=== PATIENT | female | born 1995 | race Hispanic/Latino ===

== ENCOUNTER 2023-02-12 01:46 | Emergency (ER) | payer MEDICAID ==
[~2023-02-12] VITALS: Ht 157.5 cm; Wt 86.2 kg
[~2023-02-12 01:46] MED LIST: BENZ-39 PO; CETI1TAB45 PO; PRED20TA3 PO
[2023-02-12] MEDS ORDERED: IPRATROPIUM/ALBUTEROL SULFATE 3 ML SOLUTION IH ONE ×2 (02:00→04:00)
[2023-02-12] MEDS ORDERED: BUDE180H IH (03:40)
[2023-02-12] MEDS ORDERED: ALBUHFA IH (03:40)
[2023-02-12] MEDS ORDERED: SOLU-MEDROL 125MG VIAL IM ONE (04:00)
[2023-02-12] MEDS ORDERED: MAGNESIUM 2GM PREMIX 50ML 50 ML IV SCH (04:00)
[2023-02-12 05:34] VITALS: BP 112/64
== END 2023-02-12 06:21 | disposition home or self-care (01) ==
LOC: EDH 01:46
DX: J45.901 Unspecified asthma with (acute) exacerbation (principal); Z79.52 Long term (current) use of systemic steroids; Z88.8 Allergy status to other drugs, medicaments and biological substances
CPT/HCPCS: 99284; 96365; 71045; 96366; 96372; 94640 ×2; J3475; J2930

== ENCOUNTER 2023-02-17 19:19 | Observation (INO) | payer MEDICAID ==
[~2023-02-17] VITALS: Ht 160 cm; Wt 86.4 kg
[~2023-02-17 19:19] MED LIST changes: +ALBUHFA IH; +BUDE180H IH
[2023-02-17] MEDS ORDERED: IPRATROPIUM/ALBUTEROL SULFATE 3 ML SOLUTION IH ONE (20:00)
[2023-02-17] MEDS ORDERED: SOLU-MEDROL 125MG VIAL IVP ONE (20:00)
[2023-02-17] MEDS ORDERED: MAGNESIUM 2GM PREMIX 50ML 50 ML IV SCH (21:30)
[2023-02-18] MEDS ORDERED: ZOLPIDEM TARTRATE 5 MG TAB PO PRN (00:30)
[2023-02-18] MEDS ORDERED: ACETAMINOPHEN 325 MG TAB PO PRN ×2 (00:30)
[2023-02-18] MEDS ORDERED: MORPHINE 4 MG SYG IV PRN (00:30)
[2023-02-18] MEDS ORDERED: ONDANSETRON 4MG INJ IV PRN (00:30)
[2023-02-18] MEDS ORDERED: MORPHINE 2 MG SYG IV PRN (00:30)
[2023-02-18] MEDS: SOLU-MEDROL 40MG VIAL IVP SCH ×3 (00:30→18:40)
[2023-02-18] MEDS: LACTATED RINGERS 1000ML 1,000 ML IV SCH ×2 (00:41→18:38)
[2023-02-18 02:05] VITALS: BP 121/74
[2023-02-18] MEDS: ALBUTEROL 0.083% 2.5 MG/3 ML INH IH SCH ×5 (02:32→19:08)
[2023-02-18] MEDS: FAMOTIDINE 20MG TAB PO SCH ×2 (07:47→20:06)
[2023-02-18] MEDS: ENOXAPARIN SODIUM 40 MG/0.4 ML SYRINGE SQ SCH (07:52)
[2023-02-18 08:00] VITALS: BP 113/61
[2023-02-18] MEDS: GUAIFENESIN-DM 200/20 MG 10 ML PO PRN ×2 (11:53→23:36)
[2023-02-18 12:00] VITALS: BP 108/61
[2023-02-18 12:46] LABS: HEMATOCRIT 42.9 % (36-48); MEAN CORPUSCULAR HGB CONC 32.4 g/dL (32.0-36.0); MEAN CORPUSCULAR VOLUME 83.5 fL (79-99); RED BLOOD CELL COUNT(AUTO) 5.14 MIL/uL (4.00-5.50); RED CELL DISTRIBUTION WIDTH 14.5 % (11.0-15.5); WHITE BLOOD COUNT (AUTO) 16.9 K/uL (4.8-10.8)
[2023-02-18 13:00] LABS: CREATININE 0.8 mg/dL (0.5-1.5)
[2023-02-18 13:05] LABS: ALBUMIN 3.5 g/dL (3.5-5.0); TOTAL PROTEIN, SERUM 7.9 g/dL (6.0-8.3)
[2023-02-18 16:00] VITALS: BP 115/71
[2023-02-18] MEDS: BUDESONIDE 0.5 MG/2 ML INH IH SCH (19:07)
[2023-02-18 19:57] VITALS: BP 99/49
[2023-02-18] MEDS ORDERED: MONTELUKAST SODIUM 10 MG TAB PO SCH (21:00)
[2023-02-18 23:24] VITALS: BP 105/48
[2023-02-19] MEDS: SOLU-MEDROL 40MG VIAL IVP SCH ×2 (01:42→09:45)
[2023-02-19] MEDS: ALBUTEROL 0.083% 2.5 MG/3 ML INH IH SCH ×3 (02:46→10:15)
[2023-02-19 03:38] VITALS: BP 120/59
[2023-02-19 06:19] LABS: BASOPHILS % (AUTO) 0.1 % (0.0-5.0); LYMPHOCYTES % (AUTO) 5.8 % (21.0-51.0); MEAN CORPUSCULAR HEMOGLOBIN 27.4 pg (27.0-33.0); MEAN CORPUSCULAR HGB CONC 32.6 g/dL (32.0-36.0); MEAN CORPUSCULAR VOLUME 84.2 fL (79-99); MONOCYTES % (AUTO) 2.3 % (3.0-13.0); PLATELET COUNT (AUTO) 274 K/uL (130-400); RED BLOOD CELL COUNT(AUTO) 4.63 MIL/uL (4.00-5.50); RED CELL DISTRIBUTION WIDTH 14.9 % (11.0-15.5); WHITE BLOOD COUNT (AUTO) 20.2 K/uL (4.8-10.8)
[2023-02-19 06:46] LABS: CREATININE 0.7 mg/dL (0.5-1.5); POTASSIUM 4.2 mmol/L (3.5-5.1); TOTAL PROTEIN, SERUM 6.8 g/dL (6.0-8.3)
[2023-02-19] MEDS: BUDESONIDE 0.5 MG/2 ML INH IH SCH (07:07)
[2023-02-19 07:26] LABS: ERYTHROCYTE SEDIMENTATION RATE 72 MM/HR (0-20)
[2023-02-19] MEDS ORDERED: METH4TAB3 PO (07:42)
[2023-02-19 08:00] VITALS: BP 90/54
[2023-02-19] MEDS ORDERED: CETIRIZINE HCL 5 MG TABLET PO SCH (09:00)
[2023-02-19] MEDS: ENOXAPARIN SODIUM 40 MG/0.4 ML SYRINGE SQ SCH (09:00)
[2023-02-19] MEDS: FAMOTIDINE 20MG TAB PO SCH (09:41)
[2023-02-19 20:20] VITALS: BP 119/61
== END 2023-02-19 11:35 | disposition home or self-care (01) ==
LOC: EDH 19:19 → INTOOBSV 19:20 → EDHIP 19:20 → 3BH 02-18 01:54
PROVIDERS: ADMIT Internal Medicine; ATTEND Internal Medicine
DX: J45.901 Unspecified asthma with (acute) exacerbation (principal); Z20.822 Contact with and (suspected) exposure to COVID-19; J06.9 Acute upper respiratory infection, unspecified; F81.9 Developmental disorder of scholastic skills, unspecified; Z51.5 Encounter for palliative care; Z79.51 Long term (current) use of inhaled steroids; Z79.899 Other long term (current) drug therapy; Z98.890 Other specified postprocedural states
CPT/HCPCS: 96365; 96366; 96375; 99285; 87804 ×2; 87635; 94640 ×11; 96376 ×2; 96361 ×2; 80053 ×2; 85027; 36415 ×2; 71045; 94664; 85025; 85651; 84145; C9803; J3475; J2930; J2920 ×4; G0378 ×2; J1650

== ENCOUNTER 2023-06-22 08:39 | Day surgery (SDC) | payer MEDICAID ==
[2023-06-20 14:30] LABS: BASOPHILS # (AUTO) 0.06 K/uL (0.00-0.20); BASOPHILS % (AUTO) 0.5 % (0.0-5.0); EOSINOPHILS # (AUTO) 1.05 K/uL (0.00-0.70); EOSINOPHILS % (AUTO) 8.9 % (0.0-8.0); HEMATOCRIT 37.1 % (36-48); IMMATURE GRANULOCYTE ABSOLUTE 0.05 K/uL (0-1); LYMPHOCYTES # (AUTO) 2.3 K/uL (1.0-4.8); LYMPHOCYTES % (AUTO) 19.3 % (21.0-51.0); MEAN CORPUSCULAR HEMOGLOBIN 29.1 pg (27.0-33.0); MEAN CORPUSCULAR HGB CONC 33.2 g/dL (32.0-36.0); MEAN CORPUSCULAR VOLUME 87.9 fL (79-99); MONOCYTES # (AUTO) 0.7 K/uL (0.1-1.0); MONOCYTES % (AUTO) 6.2 % (3.0-13.0); NEUTROPHILS # (AUTO) 7.6 K/uL (1.8-7.7); NEUTROPHILS % (AUTO) 64.7 % (40.0-77.0); PLATELET COUNT (AUTO) 250 K/uL (130-400); RED BLOOD CELL COUNT(AUTO) 4.22 MIL/uL (4.00-5.50); RED CELL DISTRIBUTION WIDTH 14.2 % (11.0-15.5); WHITE BLOOD COUNT (AUTO) 11.8 K/uL (4.8-10.8)
[2023-06-20 14:34] VITALS: BP 105/66; PULSE 73; RESP 18
[2023-06-20 14:52] LABS: ALBUMIN 3.1 g/dL (3.5-5.0); BILIRUBIN,TOTAL 0.2 mg/dL (0.2-1.0); CREATININE 0.9 mg/dL (0.5-1.5); POTASSIUM 3.9 mmol/L (3.5-5.1); TOTAL PROTEIN, SERUM 7.1 g/dL (6.0-8.3)
[2023-06-22] VITALS (17 sets, daily range): BP systolic 100–117; BP diastolic 58–99; PULSE 69–102; RESP 12–22
[~2023-06-22] VITALS: Ht 157.5 cm; Wt 88.4 kg
[~2023-06-22 08:39] MED LIST changes: -BENZ-39 PO; -BUDE180H IH; -CETI1TAB45 PO; -PRED20TA3 PO
[2023-06-22] MEDS ORDERED: BUPIVACAINE/PF 0.25% 30ML VIAL IJ ONE (08:45)
[2023-06-22] MEDS ORDERED: LACTATED RINGERS 1000ML 1,000 ML IV ONE (08:48)
[2023-06-22] MEDS ORDERED: CEFAZOLIN SODIUM 2 GM VIAL ONE (08:48)
[2023-06-22] MEDS ORDERED: ROCURONIUM 10MG/1ML SYR 10 MG/ML ML ONE (09:07)
[2023-06-22] MEDS ORDERED: FENTANYL CITRATE PF 50 MCG/1 ML 2ML VIAL ONE (09:07)
[2023-06-22] MEDS ORDERED: MIDAZOLAM HCL 1 MG/ML 2ML VIAL ONE (09:07)
[2023-06-22] MEDS ORDERED: SUCCINYLCHOLINE 200MG/10ML SYR ONE (09:07)
[2023-06-22] MEDS ORDERED: PROPOFOL 10 MG/ML 20ML VIAL IV ONE (09:07)
[2023-06-22] MEDS ORDERED: LIDOCAINE PF 100MG/5ML (2%) SYRINGE 5ML ONE (09:07)
[2023-06-22] MEDS ORDERED: GLYCOPYRROLATE 1 MG/5 ML SYRINGE ONE (10:12)
[2023-06-22] MEDS ORDERED: NEOSTIGMINE 5MG/5ML SYR IV ONE (10:12)
[2023-06-22] MEDS ORDERED: ONDANSETRON 4MG INJ ONE (10:50)
[2023-06-22] MEDS ORDERED: MEPERIDINE-PF 25 MG/ML SYG ONE (10:50)
[2023-06-22] MEDS ORDERED: KETOROLAC 30MG VIAL (30MG/ML) ONE (10:51)
== END 2023-06-22 13:15 | disposition home or self-care (01) ==
LOC: DAH 08:39
PROVIDERS: ATTEND Surgery
DX: K80.10 Calculus of gallbladder with chronic cholecystitis without obstruction (principal); Z20.822 Contact with and (suspected) exposure to COVID-19; K82.8 Other specified diseases of gallbladder; J45.909 Unspecified asthma, uncomplicated; E66.9 Obesity, unspecified; Z98.890 Other specified postprocedural states; Z98.51 Tubal ligation status; Z98.891 History of uterine scar from previous surgery; Z79.899 Other long term (current) drug therapy; Z88.8 Allergy status to other drugs, medicaments and biological substances; Z91.040 Latex allergy status; Z88.3 Allergy status to other anti-infective agents; Z68.32 Body mass index [BMI] 32.0-32.9, adult
CPT/HCPCS: 80053; 84703; 85025; 36415; 47562; 88304; A6260; A4663; J7030; J7120; J3010; J0330; J3490 ×4; J2710; J2250; J2405; J1885; J2175; J0690; C1769 ×3; A4649 ×2; A4930; A4215; A4223; A4222; A4221; A4600; J2001; J2704

== ENCOUNTER 2023-10-18 20:14 | Emergency (ER) | payer MEDICAID ==
[~2023-10-18] VITALS: Ht 157.5 cm; Wt 89.8 kg
[2023-10-18 20:15] VITALS: BP 129/76; O2SAT 97
[2023-10-18] MEDS ORDERED: IPRATROPIUM/ALBUTEROL SULFATE 3 ML SOLUTION IH ONE (20:30)
[2023-10-18] MEDS ORDERED: ALBU90AE2 IH (20:32)
[2023-10-18 21:00] LABS: RAPID GROUP A STREP negative (NEGATIVE)
[2023-10-18 21:02] VITALS: PULSE 83; RESP 18
[2023-10-18 21:08] LABS: SARS-CoV-2, RNA, NAAT NEGATIVE SARS CoV-2 (NEGATIVE)
[2023-10-18 21:10] LABS: INFLUENZA TYPE A Negative For Type A (NEGATIVE); INFLUENZA TYPE B Negative For Type B (NEGATIVE)
== END 2023-10-18 21:39 | disposition home or self-care (01) ==
LOC: EDH 20:14
DX: J45.901 Unspecified asthma with (acute) exacerbation (principal); Z91.041 Radiographic dye allergy status; Z88.8 Allergy status to other drugs, medicaments and biological substances; Z20.822 Contact with and (suspected) exposure to COVID-19
CPT/HCPCS: 99283; 87635; 87880; 87804 ×2; 94640; C9803

== ENCOUNTER 2024-01-15 17:08 | Emergency (ER) | payer MEDICAID ==
[~2024-01-15] VITALS: Ht 160 cm; Wt 86.2 kg
[~2024-01-15 17:08] MED LIST changes: +ALBU90AE2 IH
[2024-01-15 17:22] VITALS: PULSE 119; RESP 26
[2024-01-15 17:26] VITALS: PULSE 118; RESP 26
[2024-01-15] MEDS: IPRATROPIUM/ALBUTEROL SULFATE 3 ML SOLUTION IH ONE ×4 (17:43→20:02)
[2024-01-15 17:56] LABS: BASOPHILS # (AUTO) 0.04 K/uL (0.00-0.20); BASOPHILS % (AUTO) 0.3 % (0.0-5.0); HEMATOCRIT 42.5 % (36-48); IMMATURE GRANULOCYTE ABSOLUTE 0.09 K/uL (0-1); LYMPHOCYTES # (AUTO) 0.9 K/uL (1.0-4.8); LYMPHOCYTES % (AUTO) 6.2 % (21.0-51.0); MEAN CORPUSCULAR HEMOGLOBIN 28.4 pg (27.0-33.0); MEAN CORPUSCULAR HGB CONC 32.7 g/dL (32.0-36.0); MEAN CORPUSCULAR VOLUME 86.7 fL (79-99); MONOCYTES # (AUTO) 0.1 K/uL (0.1-1.0); MONOCYTES % (AUTO) 0.8 % (3.0-13.0); NEUTROPHILS # (AUTO) 13.2 K/uL (1.8-7.7); NEUTROPHILS % (AUTO) 92.1 % (40.0-77.0); PLATELET COUNT (AUTO) 275 K/uL (130-400); RED CELL DISTRIBUTION WIDTH 14.4 % (11.0-15.5); WHITE BLOOD COUNT (AUTO) 14.3 K/uL (4.8-10.8)
[2024-01-15 18:13] LABS: CREATININE 0.9 mg/dL (0.5-1.0); POTASSIUM 4.4 mmol/L (3.5-5.1)
[2024-01-15 18:23] LABS: ALBUMIN 3.5 g/dL (3.5-5.0); BILIRUBIN,TOTAL 0.3 mg/dL (0.2-1.0); TOTAL PROTEIN, SERUM 7.7 g/dL (6.0-8.3)
[2024-01-15] MEDS: SOLU-MEDROL 125MG VIAL IVP ONE (18:34)
[2024-01-15 18:59] LABS: COVID19 (SARS ANTIGEN RAPID) PRESUMPTIVE NEGATIVE (NEGATIVE); INFLUENZA TYPE A Negative For Type A (NEGATIVE); INFLUENZA TYPE B Negative For Type B (NEGATIVE)
[2024-01-15] MEDS: MAGNESIUM 2GM PREMIX 50ML 50 ML IV SCH (19:00)
[2024-01-15 19:14] VITALS: PULSE 99; RESP 20
[2024-01-15 19:56] VITALS: BP 118/73; PULSE 110; RESP 19; O2SAT 98
[2024-01-15] MEDS ORDERED: ALBUHFA IH (20:26)
[2024-01-15] MEDS ORDERED: AUD IH (20:26)
== END 2024-01-15 20:50 | disposition home or self-care (01) ==
LOC: EDH 17:08
DX: J45.901 Unspecified asthma with (acute) exacerbation (principal); Z88.8 Allergy status to other drugs, medicaments and biological substances; Z91.041 Radiographic dye allergy status; Z20.822 Contact with and (suspected) exposure to COVID-19
CPT/HCPCS: 99285; 96365; 71045; 96375; 87426; 84484; 80053; 85025; 87804 ×2; 36415; 93005; 94640 ×3; J3475; J2930

== ENCOUNTER → 2024-02-26 | Outpatient (CLI) | payer MEDICAID ==
[~2024-02-26] MED LIST changes: -ALBU90AE2 IH; +AMOX-426 PO; +AUD IH; +BUDE10.26 IH; +Ergocalciferol (Vitamin D2) PO; +MONT-46 PO; +PRED10TA3 PO; +PRED20TA3 PO
[2024-02-26 15:15] LABS: BASOPHILS # (AUTO) 0.04 K/uL (0.00-0.20); BASOPHILS % (AUTO) 0.3 % (0.0-5.0); EOSINOPHILS # (AUTO) 0.51 K/uL (0.00-0.70); EOSINOPHILS % (AUTO) 3.8 % (0.0-8.0); HEMATOCRIT 36.7 % (36-48); IMMATURE GRANULOCYTE ABSOLUTE 0.07 K/uL (0-1); LYMPHOCYTES # (AUTO) 2.5 K/uL (1.0-4.8); LYMPHOCYTES % (AUTO) 18.9 % (21.0-51.0); MEAN CORPUSCULAR HEMOGLOBIN 29.2 pg (27.0-33.0); MEAN CORPUSCULAR HGB CONC 33.2 g/dL (32.0-36.0); MEAN CORPUSCULAR VOLUME 87.8 fL (79-99); MONOCYTES % (AUTO) 7.2 % (3.0-13.0); NEUTROPHILS # (AUTO) 9.2 K/uL (1.8-7.7); NEUTROPHILS % (AUTO) 69.3 % (40.0-77.0); PLATELET COUNT (AUTO) 208 K/uL (130-400); RED BLOOD CELL COUNT(AUTO) 4.18 MIL/uL (4.00-5.50); RED CELL DISTRIBUTION WIDTH 14.7 % (11.0-15.5); WHITE BLOOD COUNT (AUTO) 13.3 K/uL (4.8-10.8)
[2024-02-26 15:31] LABS: HCG,QUALITATIVE URINE NEGATIVE (NEGATIVE)
[2024-02-26 15:38] LABS: AMPHET/METH SCREEN,URINE NEGATIVE (NEGATIVE); BARBITURATE SCREEN, URINE NEGATIVE (NEGATIVE); BENZODIAZEPINES SCREEN,URINE NEGATIVE (NEGATIVE); CANNABINOID SCREEN,URINE POSITIVE (NEGATIVE); COCAINE SCREEN,URINE NEGATIVE (NEGATIVE); OPIATE SCREEN,URINE NEGATIVE (NEGATIVE); PHENCYCLIDINE SCREEN,URINE NEGATIVE (NEGATIVE)
[2024-02-26 15:53] LABS: ALBUMIN 3.1 g/dL (3.5-5.0); BILIRUBIN,TOTAL 0.2 mg/dL (0.2-1.0); CREATININE 0.8 mg/dL (0.5-1.0); POTASSIUM 3.7 mmol/L (3.5-5.1); THYROID STIMULATING HORMONE 0.38 uIU/mL (0.36-3.74); TOTAL PROTEIN, SERUM 6.7 g/dL (6.0-8.3)
== END | disposition home or self-care (01) ==
LOC: LAB 14:17
PROVIDERS: ATTEND Psychiatry & Neurology Psychiatry
DX: Z79.899 Other long term (current) drug therapy (principal)
CPT/HCPCS: 36415; 80053; 80061; 80305; 81025; 82306; 82607; 82746; 84443; 85025; 93005

== ENCOUNTER 2025-07-22 17:12 | Emergency (ER) | payer MEDICAID ==
[~2025-07-22] VITALS: Ht 157.5 cm; Wt 90.7 kg
--- NOTE | 2025-07-22 17:28 | ERN ---
ED Note History of Present Illness Stated Complaint: ALLERGIC REACTION Chief Complaint: Allergic Reaction Time Seen by MD: 17:13 Time Seen by Midlevel: 17:13 Dictation: The patient is a 30-year-old female with a history of asthma who presents to the emergency department with complaints of generalized rash onset this afternoon. Patient reports itchiness. Reports some shortness of breath. Denies any fevers or recent illness. EMS gave an albuterol treatment prior to arrival. Allergies: Coded Allergies: iodine (Unverified Allergy, Intermediate, 01/19/23) latex (Unverified Allergy, Intermediate, 01/19/23) Home Meds Active Scripts [Ergocalciferol (Vitamin D2)] 86450 UNIT CAPSULE No Conflict Check, 39199 UNIT PO QWEEK, #30 CAP 1 Refill Prov:COMPA DUKES 02/14/24 Prednisone (Prednisone) 10 Mg Tablet, 10 MG PO DAILY for 5 Days, #5 TAB Prov:MICHELE WATSON NP 02/14/24 Amoxicillin/Potassium Clav (Augmentin 500-125 Tablet) 500 Mg-125 Mg Tablet, 1 EACH PO BID for 7 Days, #14 TAB Prov:MICHELE WATSON NP 02/14/24 Prednisone (Prednisone) 20 Mg Tablet, 20 MG PO DAILY for 5 Days, #5 TAB Prov:MICHELE WATSON NP 02/12/24 Montelukast Sodium (Singulair 10Mg) 10 Mg Tab, 10 MG PO HS for 30 Days, #30 TAB Prov:MICHELE WATSON NP 02/12/24 Budesonide/Formoterol Fumarate (Budesonide-Formoterol 160-4.5) 160 Mcg-4.5 Mcg/Actuation Hfa.aer.ad, 20.4 GM IH 2 puffs for 30 Days, #1 INHALER Prov:MICHELE WATSON NP 02/12/24 Albuterol Sulfate (Albuterol Sulfate) 2.5 Mg/0.5 Ml Vial.neb, 2.5 MG IH Q6H for wheezing/sob, #40 INH 2 Refills Prov:SHANNON CARVALHO Sr., MD 01/15/24 Albuterol Sulfate (Ventolin Hfa/Proventil Hfa/Proair Hfa) 90 Mcg/Puff Puff, 90 MCG IH TID, #2 INHALER 2 Refills Prov:FAREEDLACHO Mcdowell MD 02/12/23 Past Medical History Past Medical History: Abscess, Asthma Surgical History: Other Surgical History Other: LEFT KNEE Family History: Negative Social History: Negative, Lives with family LMP: Jul 11, 2025 RN Note Reviewed/Agreed w/PFSH: Yes Review of System Dictation Constitutional: Negative for fever,chills, and weight loss Eyes: Negative for injury, pain,redness, and discharge ENT: Negative for injury,pain or swelling Cardiovascular: Negative for chest pain, palpitations, and edema Respiratory: Negative for cough, and wheezing, positive for shortness of breath Abdomen/GI: Negative for abdominal pain, nausea, vomiting, diarrhea, and constipation Back: Negative for injury and pain : Negative for injury, bleeding and discharge MS/Extremity: Negative for injury and deformity Skin: Negative for discoloration positive for rash, itchiness Neuro: Negative for headache, weakness, numbness, tingling, and seizure Psych: Negative for suicide ideation, homicidal ideation, and hallucinations Initial Vital Sign VS Vital Signs Date Time Temp Pulse Resp B/P (MAP) Pulse Ox O2 Delivery O2 Flow Rate FiO2 07/22/25 17:13 97.9 92 20 129/77 98 Room Air 0 07/22/25 18:27 21 Physical Exam Dictation Vital Signs reviewed General Appearance: Alert, oriented x 3, no acute distress, well developed, nourished. Head and Face: non-traumatic. Eyes: PERRL, pink conjunctivas, eyelid no trauma, anterior chamber with arcus senilis. Ears: Pinnas intact and no signs of trauma or erythema ear canals clear and no discharge TM no erythema Nose: No discharge, no bleeding. Oropharynx: Mouth normal, tongue pink. pharynx clear,no erythema, tonsils no exudates, no abscesses noted, mucous membrane moist Neck: Supple, non-tender, no thyromegaly, no masses, no JVD, no bruits Breast:Deferred Chest:No tenderness, no crepitus, no paradoxical movement, no retractions Lungs:Clear, well-ventilated, symmetric, no rales, no wheezing, no rhonchi, no stridor, good breath sounds bilaterally Heart: Regular rate, regular rhythm, no murmur, no gallops Vascular: no peripheral edema, Abdomen: Soft, positive bowel sounds, nondistended, no guarding, nontender, no rebound, no masses no hepatomegaly, no splenomegaly, no Sorensen's sign, no hernias. Rectal: Deferred Genital: Deferred Neurological: Normal speech, motor function intact, sensory function intact Musculoskeletal: Neck nontender, full range of motion, back nontender, full range of motion, Extremities: nontender, full range of motion Skin: Color pink, dry, no turgor, no lacerations, no abrasions, no contusions. Generalized hives to back, abdomen, face, excessive dryness noted Lymphatic: Deferred Results (Laboratory/Radiology) Labs Reviewed?: Yes ED Course ED Course Orders Procedure Category Date Status Time Methylprednisolone PHA 07/22/25 Complete Succ 125mg (Solu-Medr 17:30 Diphenhydramine Hcl PHA 07/22/25 Complete (Benadryl Inj) 17:30 Famotidine 20mg Vial PHA 07/22/25 Complete (Pepcid 20mg Vial) 17:30 0.9%Nacl 1000ml (Ns PHA 07/22/25 Complete 1000ml) 17:30 Testing, LAB 07/22/25 Logged Serum Hcg 17:25 Current Medications Medications (Trade) Dose Ordered Sig/Ady Route PRN Reason Start Time Stop Time Status Last Admin Dose Admin Diphenhydramine HCl (BENAdryl INJ) 25 mg ONCE ONCE IV 07/22/25 17:30 07/22/25 17:31 DC 07/22/25 18:16 Famotidine (Pepcid 20mg Vial) 20 mg ONCE ONCE IV 07/22/25 17:30 07/22/25 17:31 DC 07/22/25 18:16 Methylprednisolone Sodium Succinate (Solu-medROL 125MG) 125 mg ONCE ONCE IVP 07/22/25 17:30 07/22/25 17:31 DC 07/22/25 18:16 Sodium Chloride 1,000 ml @ 0 mls/hr ONCE ONCE IV 07/22/25 17:30 07/22/25 17:31 DC 07/22/25 18:16 Vital Signs Date Time Temp Pulse Resp B/P (MAP) Pulse Ox O2 Delivery O2 Flow Rate FiO2 07/22/25 18:27 98.1 90 16 120/75 98 Room Air* 0 21 07/22/25 17:13 97.9 92 20 129/77 98 Room Air 0 Medical Decision Making MDM The patient is a 30-year-old female with a history of asthma who presents to the emergency department with complaints of generalized rash onset this afternoon. Patient reports itchiness. Reports some shortness of breath. Denies any fevers or recent illness. EMS gave an albuterol treatment prior to arrival. With a generalized rash. Reports of itchiness. On physical exam patient is in no acute distress, nontoxic appearing, clear lung sounds, no swelling to face or tongue. No signs of anaphylaxis. Stable vital signs. Patient instructed to follow up with PCP. Differential diagnosis: Allergic reaction acute urticaria, scabies Need for hospitalization: Patient does not meet criteria for hospitalization. There are no social concerns with this patient. DX & DISP Disposition: Discharge Departure Impression: Primary Impression: Acute urticaria Additional Impression: Rash Condition: Stable Scripts Famotidine (Pepcid) 20 Mg Tablet 1 TAB PO DAILY for 7 Days, #7 TAB 0 Refills Prov: HEATH HOUSER 07/22/25 Diphenhydramine HCl (Benadryl) 50 Mg Cap 50 MG PO TID PRN for ALLERGIC REACTION for 10 Days, #30 CAP 0 Refills Prov: HEATH HOUSER 07/22/25 Additional Instructions: Please follow up with the your primary doctor in 1-2 days. If anything worsens please return to ER. FOLLOW-UP WITH PRIMARY CARE PROVIDER IN 1 TO 2 DAYS. TAKE MEDICATIONS DIRECTED HERE IN THE EMERGENCY ROOM. OKAY TO CONTINUE HOME MEDICATIONS UNLESS OTHERWISE DISCUSSED DURING YOUR VISIT IN THE EMERGENCY ROOM TODAY. RETURN TO YOUR NEAREST EMERGENCY ROOM IF SYMPTOMS WORSEN OR IF THERE IS NO IMPROVEMENT. CALL 911 IF YOU NEED IMMEDIATE ASSISTANCE. TAKE TYLENOL [id number] NEEDED AND IF NO CONTRAINDICATIONS ARE PRESENT. INCREASE ORAL HYDRATION. A WOUND CULTURE OR URINE CULTURE WAS ORDERED HERE IN THE EMERGENCY ROOM DEPARTMENT PLEASE FOLLOW-UP WITH PRIMARY CARE PROVIDER AND ADVISE THEM TO GET REPEAT PORTS FROM OUR FACILITY. IF YOU HAD ANY ANGELLA WRAP/SPLINTS THAT WERE APPLIED HERE, PLEASE DO NOT REMOVE THEM UNTIL YOU SEE YOUR PRIMARY CARE OR SPECIALTY. Referrals: BENJI CRUZ (PCP) Time of Disposition: 19:12 I have reviewed the case, and I agree with, Diagnosis and Plan HEATH HOUSER Jul 22, 2025 17:28
[2025-07-22] MEDS: FAMOTIDINE 20MG VIAL IV ONE (18:16)
[2025-07-22] MEDS: 0.9%NACL 1000ML 1,000 ML IV ONE (18:16)
[2025-07-22 18:27] VITALS: BP 120/75; PULSE 90; RESP 16; TEMP 98.1; O2SAT 98
[2025-07-22] MEDS ORDERED: FAMO-136 PO (19:13)
[2025-07-22] MEDS ORDERED: DIPH50CA38 PO (19:13)
[2025-07-23] MEDS ORDERED: ALBUHFA IH (20:54)
[2025-07-23] MEDS ORDERED: AZIT250T9 PO (20:54)
== END 2025-07-22 19:23 | disposition home or self-care (01) ==
LOC: EDH 17:12
DX: L50.9 Urticaria, unspecified (principal); R21 Rash and other nonspecific skin eruption; J45.909 Unspecified asthma, uncomplicated; Z79.52 Long term (current) use of systemic steroids; Z88.8 Allergy status to other drugs, medicaments and biological substances; Z91.040 Latex allergy status
CPT/HCPCS: 99284; 96374; 96375; J2919; J1200; J1308; J7030

== ENCOUNTER 2025-07-23 18:26 | Emergency (ER) | payer MEDICAID ==
[~2025-07-23] VITALS: Ht 157.5 cm; Wt 89.8 kg
[~2025-07-23 18:26] MED LIST changes: +DIPH50CA38 PO; +FAMO-136 PO
--- NOTE | 2025-07-23 18:37 | ERN ---
ED Note History of Present Illness Stated Complaint: ASTHMA Chief Complaint: Adult-Asthma Time Seen by MD: 18:28 Dictation: IS A 30-YEAR-OLD FEMALE COMING IN VIA EMS WITH COMPLAINTS OF AN ASTHMA FLARE EARLIER THIS AFTERNOON. SHE STATES SHE HAS A HISTORY OF ASTHMA AND IT IS RAN OUT OF HER INHALER. SHE HAS HAD NO FEVER NO CHILLS SHE HAS HAD A DRY COUGH FOR THIS AFTERNOON. NO LOSS OF TASTE OR SMELL NO NAUSEA VOMITING NO DIARRHEA. HER [facility] CARE DOCTOR [facility] AND SHE STATES SHE HAS A AN APPOINTMENT IN TWO DAYS. RECEIVED ALBUTEROL IN ROUTE TO THE EMERGENCY ROOM. NO WHEEZING ON THE STRETCHER AT THIS TIME. Allergies: Coded Allergies: iodine (Unverified Allergy, Intermediate, 01/19/23) latex (Unverified Allergy, Intermediate, 01/19/23) Home Meds Active Scripts Famotidine (Pepcid) 20 Mg Tablet, 1 TAB PO DAILY for 7 Days, #7 TAB 0 Refills Prov:HEATH HOUSER ICE GUARD INSPECTOR 07/22/25 Diphenhydramine HCl (Benadryl) 50 Mg Cap, 50 MG PO TID PRN for ALLERGIC REACTION for 10 Days, #30 CAP 0 Refills Prov:HEATH HOUSER ICE GUARD INSPECTOR 07/22/25 [Ergocalciferol (Vitamin D2)] 66565 UNIT CAPSULE No Conflict Check, 97411 UNIT PO QWEEK, #30 CAP 1 Refill Prov:COMPA DUKES PA 02/14/24 Prednisone (Prednisone) 10 Mg Tablet, 10 MG PO DAILY for 5 Days, #5 TAB Prov:MICHELE WATSON NP 02/14/24 Amoxicillin/Potassium Clav (Augmentin 500-125 Tablet) 500 Mg-125 Mg Tablet, 1 EACH PO BID for 7 Days, #14 TAB Prov:MICHELE WATSON NP 02/14/24 Prednisone (Prednisone) 20 Mg Tablet, 20 MG PO DAILY for 5 Days, #5 TAB Prov:MICHELE WATSON SURGICAL INSTRUMENT TECHNICIAN 02/12/24 Montelukast Sodium (Singulair 10Mg) 10 Mg Tab, 10 MG PO HS for 30 Days, #30 TAB Prov:MICHELE WATSON SURGICAL INSTRUMENT TECHNICIAN 02/12/24 Budesonide/Formoterol Fumarate (Budesonide-Formoterol 160-4.5) 160 Mcg-4.5 Mcg/Actuation Hfa.aer.ad, 20.4 GM IH 2 puffs for 30 Days, #1 INHALER Prov:MICHELE WATSON NP 02/12/24 Albuterol Sulfate (Albuterol Sulfate) 2.5 Mg/0.5 Ml Vial.neb, 2.5 MG IH Q6H for wheezing/sob, #40 INH 2 Refills Prov:SHANNON CARVALHO Sr., MD 01/15/24 Albuterol Sulfate (Ventolin Hfa/Proventil Hfa/Proair Hfa) 90 Mcg/Puff Puff, 90 MCG IH TID, #2 INHALER 2 Refills Prov:LACHO GUERRIER MD 02/12/23 Past Medical History Past Medical History: Asthma Surgical History: Other, None Surgical History Other: LEFT KNEE Family History: Negative Social History: Negative, Lives with family History: Not Applicable RN Note Reviewed/Agreed w/PFSH: Yes Review of System Dictation CONSTITUTIONAL: NEGATIVE EXCEPT FOR HPI HEAD/FACE: NEGATIVE EXCEPT FOR HPI EENT: NEGATIVE EXCEPT FOR HPI RESPIRATORY: NEGATIVE EXCEPT FOR HPI SOB/WHEEZING GASTROINTESTINAL/ABDOMINAL: NEGATIVE EXCEPT FOR HPI GENITOURINARY: NEGATIVE EXCEPT FOR HPI MUSCULOSKELETAL: NEGATIVE EXCEPT FOR HPI INTEGUMENTARY: NEGATIVE EXCEPT FOR HPI NEUROLOGICAL/PSYCH: NEGATIVE EXCEPT FOR HPI HEMATOLOGIC/LYMPHATIC: NEGATIVE EXCEPT FOR HPI ALL SYSTEMS NEGATIVE, EXCEPT NOTED ABOVE. 13 POINT REVIEW OF SYSTEMS ASSESSED AND ALL NEGATIVE EXCEPT FOR ABOVE. Initial Vital Sign VS Vital Signs Date Time Temp Pulse Resp B/P (MAP) Pulse Ox O2 Delivery O2 Flow Rate FiO2 07/23/25 18:28 98.4 107 20 125/70 98 Nasal Cannula 4.0 07/23/25 20:12 21 Physical Exam Dictation VITAL SIGNS REVIEWED GENERAL APPEARANCE: ALERT, ORIENTED X 3, NO ACUTE DISTRESS, WELL DEVELOPED, NOURISHED. OBESE HEAD AND FACE: NON-TRAUMATIC. EYES: PERRL, PINK CONJUNCTIVAS, EYELID NO TRAUMA, ANTERIOR CHAMBER WITH ARCUS SENILIS. EARS: PINNAS INTACT AND NO SIGNS OF TRAUMA OR ERYTHEMA EAR CANALS CLEAR AND NO DISCHARGE TM NO ERYTHEMA NOSE: NO DISCHARGE, NO BLEEDING. OROPHARYNX: MOUTH NORMAL, TONGUE PINK, PHARYNX CLEAR,NO ERYTHEMA, TONSILS NO EXUDATES, NO ABSCESSES NOTED, MUCOUS MEMBRANE MOIST NECK: SUPPLE, NON-TENDER, NO THYROMEGALY, NO MASSES, NO JVD, NO BRUITS BREAST:DEFERRED CHEST:NO TENDERNESS, NO CREPITUS, NO PARADOXICAL MOVEMENT, NO RETRACTIONS LUNGS:CLEAR, WELL-VENTILATED, SYMMETRIC, NO RALES, NO WHEEZING, NO RHONCHI, NO STRIDOR, GOOD BREATH SOUNDS BILATERALLY HEART: REGULAR RATE, REGULAR RHYTHM, NO MURMUR, NO GALLOPS VASCULAR: NO PERIPHERAL EDEMA, ABDOMEN: SOFT, POSITIVE BOWEL SOUNDS, NONDISTENDED, NO GUARDING, NONTENDER, NO REBOUND, NO MASSES NO HEPATOMEGALY, NO SPLENOMEGALY, NO HOANG'S SIGN, NO HERNIAS. RECTAL: DEFERRED GENITAL: DEFERRED NEUROLOGICAL: NORMAL SPEECH, MOTOR FUNCTION INTACT, SENSORY FUNCTION INTACT MUSCULOSKELETAL: NECK NONTENDER, FULL RANGE OF MOTION, BACK NONTENDER, FULL RANGE OF MOTION, EXTREMITIES: NONTENDER, FULL RANGE OF MOTION SKIN: COLOR PINK, DRY, NO TURGOR, NO RASH, NO LACERATIONS, NO ABRASIONS, NO CONTUSIONS. LYMPHATIC: DEFERRED Results (Laboratory/Radiology) Laboratory/Radiology Laboratory Tests Test 07/23/25 18:57 White Blood Count 17.8 K/uL (4.8-10.8) H Red Blood Count 4.71 MIL/uL (4.00-5.50) Hemoglobin 13.7 g/dL (12.0-16.0) Hematocrit 42.2 % (36-48) Mean Corpuscular Volume 89.6 fL (79-99) Mean Corpuscular Hemoglobin 29.1 pg (27.0-33.0) Mean Corpuscular Hemoglobin Concent 32.5 g/dL (32.0-36.0) Red Cell Distribution Width 13.8 % (11.0-15.5) Platelet Count 264 K/uL (130-400) Mean Platelet Volume 10.0 fL (7.5-10.5) Immature Granulocyte % (Auto) 0.8 % (0-1) Neutrophils (%) (Auto) 92.1 % (40.0-77.0) H Lymphocytes (%) (Auto) 5.3 % (21.0-51.0) L Monocytes (%) (Auto) 1.7 % (3.0-13.0) L Eosinophils (%) (Auto) 0.0 % (0.0-8.0) Basophils (%) (Auto) 0.1 % (0.0-5.0) Neutrophils # (Auto) 16.3 K/uL (1.8-7.7) H Lymphocytes # (Auto) 1.0 K/uL (1.0-4.8) Monocytes # (Auto) 0.3 K/uL (0.1-1.0) Eosinophils # (Auto) 0.00 K/uL (0.00-0.70) Basophils # (Auto) 0.02 K/uL (0.00-0.20) Absolute Immature Granulocyte (auto 0.15 K/uL (0-1) Nucleated Red Blood Cells 0.0 % (0.0-0.19) White Cell Morphology Comment See comments Sodium Level 140 mmol/L (136-145) Potassium Level 3.8 mmol/L (3.5-5.1) Chloride Level 106 mmol/L (101-111) Carbon Dioxide Level 22 mmol/L (21-32) Blood Urea Nitrogen 11 mg/dL (7-18) Creatinine 0.8 mg/dL (0.5-1.0) Glomerular Filtration Rate Calc 103 mL/min (>90) Random Glucose 172 mg/dL (70-105) H Total Calcium 9.0 mg/dL (8.5-10.1) Labs Reviewed?: Yes ED Course ED Course Orders Procedure Category Date Status Time Covid19 (Sars Antigen LAB 07/23/25 In Process Rapid) 18:30 Cbc With Differential LAB 07/23/25 Complete 18:30 Basic Metabolic Panel LAB 07/23/25 Complete 18:30 Budesonide 0.5 Mg/2 PHA 07/23/25 In Process Ml Inh (Pulmicort 0. 18:30 Methylprednisolone PHA 07/23/25 In Process Succ 125mg (Solu-Medr 18:30 Current Medications Medications (Trade) Dose Ordered Sig/Ady Route PRN Reason Start Time Stop Time Status Last Admin Dose Admin Budesonide (Pulmicort 0.5 Mg/2ml) 1 mg ONCE IH 07/23/25 18:30 07/23/25 22:30 07/23/25 20:09 Methylprednisolone Sodium Succinate (Solu-medROL 125MG) 125 mg ONCE IVP 07/23/25 18:30 07/23/25 22:30 07/23/25 18:56 Vital Signs Date Time Temp Pulse Resp B/P (MAP) Pulse Ox O2 Delivery O2 Flow Rate FiO2 07/23/25 20:12 98.6 96 18 112/68 96 Room Air* 0 21 07/23/25 20:09 91 18 07/23/25 18:28 98.4 107 20 125/70 98 Nasal Cannula 4.0 2049/PATIENT IS SATURATING 98 99% ON ROOM AIR. BILATERAL BREATH SOUNDS ARE CLEAR TO AUSCULTATION PATIENT STATES SHE FEELS MARKEDLY IM[place]OV[place]. [place] [address] WBCS HOWEVER SHE HAS BEEN ON STEROIDS FOR SEVERAL DAYS PUBLIC ADDRESS ANNOUNCER TO AN ALLERGIC REACTION. STRONGLY SUSPECT THIS IS REACTIVE RATHER THAN INFECTIVE Medical Decision Making MDM MEDICAL DECISION-MAKING BASED ON BASIC LABS [id number] IV PUSH AND BUDESONIDE FOR ACUTE [place]HMA [place] [address] WBCS HOWEVER STRONGLY SUSPECT THIS IS REACTIVE AND DUE TO THE STEROIDS RATHER THAT INFECTION BILATERAL BREATH SOUNDS ARE CLEAR SATURATING 98 99% ON ROOM AIR. WE WILL SEND PATIENT HOME WITH ALBUTEROL AND A Z-DESI HAVE HER SEE YOUR PRIMARY CARE DOCTOR AT THE [facility] TOMORROW DX & DISP Disposition: Discharge Departure Impression: Primary Impression: Acute asthma exacerbation Additional Impression: Leukocytosis Condition: Stable Scripts Albuterol Sulfate (Ventolin Hfa/Proventil Hfa/Proair Hfa) 90 Mcg Puff 2 PUFF IH Q4H for WHEEZING, #1 INHALER 0 Refills Prov: THOMAS YOUNGER NP 07/23/25 Azithromycin (Azithromycin) 250 Mg Tablet 1 TAB PO AD for 5 Days, #6 TAB 0 Refills 2 the first day followed by 1 for days 2-5 Prov: THOMAS YOUNGER NP 07/23/25 Additional Instructions: FOLLOW-UP WITH PRIMARY CARE PROVIDER IN 1 TO 2 DAYS. TAKE MEDICATIONS DIRECTED HERE IN THE EMERGENCY ROOM. OKAY TO CONTINUE HOME MEDICATIONS UNLESS OTHERWISE DISCUSSED DURING YOUR VISIT IN THE EMERGENCY ROOM TODAY. RETURN TO Y OUR NEAREST EMERGENCY ROOM IF SYMPTOMS WORSEN OR IF THERE IS NO IMPROVEMENT. CALL 911 IF YOU NEED IMMEDIATE ASSISTANCE. TAKE TYLENOL OR MOTRIN [id number] NEEDED AND IF NO CONTRAINDICATIONS ARE PRESENT. INCREASE ORAL HYDRATION. A WOUND CULTURE OR URINE CULTURE WAS ORDERED HERE IN THE EMERGENCY ROOM DEPARTMENT PLEASE FOLLOW-UP WITH PRIMARY CARE PROVIDER AND ADVISE THEM TO GET REPEAT PORTS FROM OUR FACILITY. IF YOU HAD ANY ANGELLA WRAP/SPLINTS THAT WERE APPLIED HERE, PLEASE DO NOT REMOVE THEM UNTIL YOU SEE YOUR PRIMARY CARE OR SPECIALTY. USE THE ALBUTEROL INHALER EVERY4 HOURS WHILE AWAKE FOR THE NEXT TWO DAYS. TAKE AZITHROMYCIN DIRECTED UNTIL GONE. FOLLOW UP WITH YOUR PRIMARY CARE DOCTOR AT THE [facility] IN THE NEXT 1-2 DAYS MANAGEMENT OF YOUR ASTHMA Referrals: BENJI CRUZ (PCP) Time of Disposition: 20:53 I have reviewed the case, and I agree with, Diagnosis and Plan THOMAS YOUNGER NP Jul 23, 2025 18:37
[2025-07-23 19:15] LABS: IMMATURE GRANULOCYTE ABSOLUTE 0.15 K/uL (0-1); NUCLEATED RED BLOOD CELLS 0.0 % (0.0-0.19); PLATELET COUNT (AUTO) 264 K/uL (130-400); RED BLOOD CELL COUNT(AUTO) 4.71 MIL/uL (4.00-5.50); RED CELL DISTRIBUTION WIDTH 13.8 % (11.0-15.5); WHITE BLOOD COUNT (AUTO) 17.8 K/uL (4.8-10.8)
[2025-07-23 19:25] LABS: CREATININE 0.8 mg/dL (0.5-1.0); GLOMERULAR FILTR. RATE CALC 103.0 mL/min (>90); GLUCOSE,RANDOM 172.0 mg/dL (70-105); SODIUM SERUM 140.0 mmol/L (136-145); UREA NITROGEN, BLOOD 11.0 mg/dL (7-18)
[2025-07-23 20:09] VITALS: PULSE 91; RESP 18
[2025-07-23] MEDS: BUDESONIDE 0.5 MG/2 ML INH IH SCH (20:09)
[2025-07-23] MEDS ORDERED: ALBUHFA IH (20:54)
[2025-07-23] MEDS ORDERED: AZIT250T9 PO (20:54)
[2025-07-23 21:00] VITALS: BP 111/55; PULSE 85; RESP 18; TEMP 98.5; O2SAT 97
== END 2025-07-23 21:04 | disposition home or self-care (01) ==
LOC: EDH 18:26
DX: J45.901 Unspecified asthma with (acute) exacerbation (principal); D72.829 Elevated white blood cell count, unspecified; Z79.51 Long term (current) use of inhaled steroids; Z79.52 Long term (current) use of systemic steroids; Z88.8 Allergy status to other drugs, medicaments and biological substances; Z91.040 Latex allergy status; Z20.822 Contact with and (suspected) exposure to COVID-19
CPT/HCPCS: 99283; 96374; 87426; 80048; 85025; 36415; 94640; J2919

== ENCOUNTER 2025-07-29 09:01 | Emergency (ER) | payer MEDICAID ==
[~2025-07-29] VITALS: Ht 157.5 cm; Wt 99.3 kg
[~2025-07-29 09:01] MED LIST changes: +AZIT250T9 PO
--- NOTE | 2025-07-29 09:24 | ERN ---
General Chief Complaint: Abscess Stated Complaint: ABSCESS Time Seen by MD: 09:11 History of Present Illness Initial Comments Patient is a 30 year old female who came in complaining of redness, pain and swelling on her left lateral leg. Per the patient the pain started on Sunday morning and she does not know what caused it. The redness and pain started increasing and the reason why she came to the ER today. She rated the pain a 10/10 and the site was tender to touch. There was also associated symptom of itchiness. On physical exam it looked like a insect bite which got infected. Timing/Duration: constant Severity: moderate Associated Symptoms: denies symptoms Allergies: Coded Allergies: iodine (Unverified Allergy, Intermediate, 01/19/23) latex (Unverified Allergy, Intermediate, 01/19/23) Home Meds Active Scripts Sulfamethoxazole/Trimethoprim (Bactrim Ds Tablet) 800 Mg-160 Mg Tablet, 1 TAB PO BID for 7 Days, #14 TAB 0 Refills Prov:JAYLEN STANFORD MD 07/29/25 Albuterol Sulfate (Ventolin Hfa/Proventil Hfa/Proair Hfa) 90 Mcg Puff, 2 PUFF IH Q4H for WHEEZING, #1 INHALER 0 Refills Prov:THOMAS YOUNGER SLED MAKER 07/23/25 Azithromycin (Azithromycin) 250 Mg Tablet, 1 TAB PO AD for 5 Days, #6 TAB 0 Refills 2 the first day followed by 1 for days 2-5 Prov:THOMAS YOUNGER SLED MAKER 07/23/25 Famotidine (Pepcid) 20 Mg Tablet, 1 TAB PO DAILY for 7 Days, #7 TAB 0 Refills Prov:HEATH HOUSER SLED MAKER 07/22/25 Diphenhydramine HCl (Benadryl) 50 Mg Cap, 50 MG PO TID PRN for ALLERGIC REACTION for 10 Days, #30 CAP 0 Refills Prov:HEATH HOUSER SLED MAKER 07/22/25 [Ergocalciferol (Vitamin D2)] 40464 UNIT CAPSULE No Conflict Check, 64732 UNIT PO QWEEK, #30 CAP 1 Refill Prov:COMPA DUKES PAC 02/14/24 Prednisone (Prednisone) 10 Mg Tablet, 10 MG PO DAILY for 5 Days, #5 TAB Prov:MICHELE WATSON AGACNP 02/14/24 Amoxicillin/Potassium Clav (Augmentin 500-125 Tablet) 500 Mg-125 Mg Tablet, 1 EACH PO BID for 7 Days, #14 TAB Prov:MICHELE WATSON AGACNP 02/14/24 Prednisone (Prednisone) 20 Mg Tablet, 20 MG PO DAILY for 5 Days, #5 TAB Prov:MICHELE WATSON AGACNP 02/12/24 Montelukast Sodium (Singulair 10Mg) 10 Mg Tab, 10 MG PO HS for 30 Days, #30 TAB Prov:MICHELE WATSON AGACNP 02/12/24 Budesonide/Formoterol Fumarate (Budesonide-Formoterol 160-4.5) 160 Mcg-4.5 Mcg/Actuation Hfa.aer.ad, 20.4 GM IH 2 puffs for 30 Days, #1 INHALER Prov:MICHELE WATSON AGACNP 02/12/24 Albuterol Sulfate (Albuterol Sulfate) 2.5 Mg/0.5 Ml Vial.neb, 2.5 MG IH Q6H for wheezing/sob, #40 INH 2 Refills Prov:SHANNON CARVLAHO Sr., MD 01/15/24 Albuterol Sulfate (Ventolin Hfa/Proventil Hfa/Proair Hfa) 90 Mcg/Puff Puff, 90 MCG IH TID, #2 INHALER 2 Refills Prov:LACHO GUERRIER MD 02/12/23 Past Medical History Past Medical History: Asthma Past Surgical History: None Surgical History Other: LEFT KNEE Family History Family History: Negative Social History Social History: Negative, Lives with family Female( History) History: Not Applicable LMP: Jun 30, 2025 Review of Systems: was completed, & the rest were negative. Physical Exam General Appearance: (+) obese Orientation: (+) alert, (+) oriented x 3 Head/Face Trauma: No Extremities Comment redness, swelling, tenderness on the left lateral leg. MDM Patient is a 30 year old female who came in complaining of redness, pain and swelling on her left lateral leg. Per the patient the pain started on Sunday morning and she does not know what caused it. The redness and pain started increasing and the reason why she came to the ER today. She rated the pain a 10/10 and the site was tender to touch. There was also associated symptom of itchiness. On physical exam it looked like a insect bite which got infected. But it wasn't big enough to be drained so we are discharging the patient on anti biotics and Ibuprofen. We also recommended the patient to soak the wound in warm water to help with the swelling and pus release. Also advised the patient to come back if she starts developing fever or if the swelling worsens . ED Course Vital Signs Date Time Temp Pulse Resp B/P (MAP) Pulse Ox O2 Delivery O2 Flow Rate FiO2 07/29/25 09:15 98.4 78 20 129/72 99 Room Air* 0 21 07/29/25 09:05 98.2 94 18 143/74 100 Room Air 0 Problem List Problem Lists: (1) cellulits of left lateral leg (2) Infected insect bite DX & DISP Disposition: Discharge Departure Impression: Primary Impression: Infected insect bite Additional Impression: cellulits of left lateral leg Condition: Stable Scripts Sulfamethoxazole/Trimethoprim (Bactrim Ds Tablet) 800 Mg-160 Mg Tablet 1 TAB PO BID for 7 Days, #14 TAB 0 Refills Prov: JAYLEN STANFORD MD 07/29/25 Additional Instructions: You came in with an infected bite and we are going to treat it with antibiotics like Bactrim and NSAIDs like ibuprofen which help with the infection and the p ain. The antibiotic is to be taken two times a day for 7 days Take all antibiotics as prescribed to completion even if you start feeling better Soak the infected leg in warm water, it should help with the swelling and pain. It also helps to drain the pus from the infected site Please call 911 or come back to the Emergency room If the swelling worsens or if you develop fever, shortness of breath, chest pain, nausea or vomiting which do not improve with medication. Referrals: SELF,REFERRAL (PCP) I performed a substantive portion of the visit. I have reviewed and personally made and approve the management plan that is documented in the notes by myself with LILIANA/resident. I acknowledged full responsibility for the patient's management plan. Chief complaint of left lower leg areas cellulitis No comorbidities No signs of SIRS or sepsis Symptoms most consistent did not with a cellulitis. No signs of abscess We will DC with antibiotics JAYLEN STANFORD MD Jul 29, 2025 09:24 ANANTH GANNON DO Jul 29, 2025 10:56
[2025-07-29] MEDS ORDERED: SULF1TAB42 PO (09:39)
[2025-07-29 10:54] VITALS: BP 132/81; PULSE 81; RESP 20; TEMP 97.9; O2SAT 99
== END 2025-07-29 11:01 | disposition home or self-care (01) ==
LOC: EDH 09:01
DX: L03.116 Cellulitis of left lower limb (principal); S80.862A Insect bite (nonvenomous), left lower leg, initial encounter; J45.909 Unspecified asthma, uncomplicated; Z88.8 Allergy status to other drugs, medicaments and biological substances; Z91.040 Latex allergy status; Z79.52 Long term (current) use of systemic steroids; W57.XXXA Bitten or stung by nonvenomous insect and other nonvenomous arthropods, initial encounter; Y93.89 Activity, other specified; Y92.89 Other specified places as the place of occurrence of the external cause; Y99.8 Other external cause status
CPT/HCPCS: 99283